=== PATIENT | female | born 1995 | race Caucasian/White ===

== ENCOUNTER 2020-08-15 22:28 | Emergency (ER) | payer OTHER ==
[2020-08-15 22:42] VITALS: BP 143/81
--- NOTE | 2020-08-15 23:08 | ED Physician Documentation ---
PD HPI OPHTHO - Stated complaint Stated Complaint: L EYE PX - Chief complaint Chief Complaint: Heent - History obtained from History obtained from: Patient - History of Present Illness Timing - onset: Today Timing - details: Gradual onset (gradually worsening, noticed when she woke at 1700 today. constant, burning, without exac/relieving features. unsure if foreign body. patient works with paint and dust on jets. does endorse sick contacts at work with pink eye.) - Additional information Additional information: patient occasionally wears contacts. advised to avoid contact use. Review of Systems Eyes: reports: Discharge, Irritation PD PAST MEDICAL HISTORY - Past Medical History Past Medical History: No - Past Surgical History Past Surgical History: No - Present Medications Home Medications: Ambulatory Orders Medication Instructions Recorded Confirmed Anxiety/Depression Medication 08/15/20 Ofloxacin 0.3% Ophth Drops 2 drops OPTH BID #5 ml 08/15/20 [Ocuflox 0.3% Ophth Drops] traZODone [Desyrel] 50 mg PO QPM 08/15/20 08/15/20 - Allergies Allergies/Adverse Reactions: Allergies Allergy/AdvReac Type Severity Reaction Status Date / Time No Known Drug Allergies Allergy Verified 08/15/20 22:42 - Social History Does the pt smoke?: No Smoking Status: Never smoker Does the pt drink ETOH?: No Does the pt have substance abuse?: No - Immunizations Immunizations are current?: Yes - POLST Patient has POLST: No PD ED PE NORMAL - Vitals Vital signs reviewed: Yes - General General: Alert and oriented X 3, No acute distress, Well developed/nourished - HEENT HEENT: Atraumatic, PERRL, EOMI, Other (L eye with moderate conjunctival injection. no visible swelling. no foreign body. fluorescein stain without increased uptake. ) Results - Vitals Vitals: Vital Signs - 24 hr 08/15/20 22:30 Temperature 37.1 C Heart Rate 65 Respiratory 16 Rate Blood Pressure 143/81 H O2 Saturation 100 Oxygen O2 Source Room air Departure - Departure Disposition: 01 Home, Self Care Clinical Impression: Conjunctivitis Condition: Good Instructions: Red Eye Tx Prescriptions: Ofloxacin 0.3% Ophth Drops [Ocuflox 0.3% Ophth Drops] 2 drops OPTH BID #5 ml Comments: You are seen in the emergency department for conjunctivitis, an infection of the eye that is highly contagious. I am prescribing antibiotic eyedrops in case this is bacterial infection, but most cases of conjunctivitis are viral and will resolve over time on their own. You should not return to work until cleared by [employer]. Wash your hands thoroughly and avoid touching your face. Return to the emergency department if you experience any new or worsening symptoms or have other concerns. Forms: Activity restrictions
== END 2020-08-15 23:22 | disposition home or self-care (01) ==
LOC: ED 22:28
DX: H10.9 Unspecified conjunctivitis (principal)
CPT/HCPCS: 99282; 99283